=== PATIENT | male | born 2000 | race Caucasian/White ===

== ENCOUNTER 2023-03-23 02:58 | Emergency (ER) | payer OTHER ==
--- NOTE | 2023-03-23 03:25 | ED Physician Documentation ---
PD HPI MALE - Stated complaint Stated Complaint: MALE - History obtained from History obtained from: Patient - History of Present Illness Timing - onset: How many weeks ago (1) Timing - duration: Weeks (1) Timing - details: Abrupt onset, Now resolved, Intermittant Associated symptoms: Hematuria (has noted intermittent pain left flank and left abd over the past week several times, associated with hematuria more often than not but not every void. More so after the times of the pain.), Back pain. No: Dysuria, Urinary frequency, Testiclar pain, Scrotal swelling PD HPI MALE CONTRIB FACTORS: Sexually active. No: Exposed to STD Similar symptoms before: Has not had sx before Recently seen: Not recently seen Review of Systems Constitutional: denies: Fever, Chills Nose: denies: Rhinorrhea / runny nose, Congestion Throat: denies: Sore throat Respiratory: denies: Cough GI: reports: Abdominal Pain : reports: Hematuria. denies: Dysuria, Discharge Skin: denies: Rash, Lesions PD PAST MEDICAL HISTORY - Past Medical History Past Medical History: No - Present Medications Home Medications: Ambulatory Orders Medication Instructions Recorded Confirmed No Known Home Medications 03/23/23 03/23/23 - Allergies Allergies/Adverse Reactions: Allergies Allergy/AdvReac Type Severity Reaction Status Date / Time No Known Drug Allergies Allergy Verified 03/23/23 03:21 PD ED PE NORMAL - Vitals Vital signs reviewed: Yes - General General: Alert and oriented X 3, No acute distress, Well developed/nourished - Cardiac Cardiac: RRR, No murmur - Respiratory Respiratory: No respiratory distress, Clear bilaterally - Abdomen Abdomen: Normal bowel sounds, Soft, Non tender, Non distended - Back Back: No CVA TTP - Derm Derm: Normal color, Warm and dry - Neuro Neuro: Alert and oriented X 3, No motor deficit, Normal speech Results - Vitals Vitals: Oxygen O2 Source Room air - Labs Labs: Laboratory Tests 03/23/23 03:36 Urine Color LT RED Urine Clarity CLEAR Urine pH 6.0 Ur Specific [place] <=1.005 Urine Protein NEGATIVE Urine Glucose (UA) NEGATIVE Urine Ketones NEGATIVE Urine Occult Blood LARGE H Urine Nitrite NEGATIVE Urine Bilirubin NEGATIVE Urine Urobilinogen 0.2 (NORMAL) Ur Leukocyte Esterase NEGATIVE Urine RBC 0-5 Urine WBC 0-3 Ur Squamous Epith Cells RARE Squamous Urine Bacteria None Seen Ur Microscopic Review INDICATED Urine Culture Comments NOT INDICATED - Rads (name of study) KUB CT Relevant Findings:: Prelim report reviewed, EMP independent interpretation of test (3 mm stone at left distal ureter almost to the bladdder, with moderate hydroureter and hydrocalyces. Renal stone incidentally noted on left as well. ) PD Medical Decision Making - ED course Complexity details: reviewed results (KUB CT showing distal ureteral stone with moderate hydroureter. He does not appear in much pain. Has blood in urine without UTI. Did not need parentaeral pain meds. ), considered differential (having pain left abd/flank intermitently, with hematuria. UA does not show signs of infection. Presume ureterolithiasis though tumor mass or such could be as well. No history of stones in the past. Can get imaging to eval. ), d/w patient Departure - Departure Disposition: 01 Home, Self Care Clinical Impression: Hematuria, Ureterolithiasis Condition: Stable Record reviewed to determine appropriate education?: Yes Instructions: ED Stone Renal W Colic Follow-Up: Jose Lyn MD [Provider Admit Priv/Credential] - Comments: Your CT scan is showing some swelling of the left kidney and a backup of fluid caused by partial blockage of the ureter from a 3 mm stone at the end of the ureter almost to the bladder. This would be the cause of the blood in the urine as the stone has rough surface and drags on the ureter as it passes. There is no signs of infection in your urine. At this point the small stone is small enough that it should continue to pass. There is a cuff of muscle at the end of the ureter that keeps urine in the bladder from refluxing. The stone can hang up there for a little bit as it stretches through that area. It can at times cause more significant pain. Stay well-hydrated. Use a combination of ibuprofen or naproxen [id number] anti-inflammatories 2 to 3 tablets 3 times daily with food for the next several days. Add Tylenol 500 to 650 mg 3-4 times daily as well for pain as needed. We sent you home with a few stronger pain pills of hydrocodone to use every 4 hours if needed for worse pain. You can strain your urine and see if you catch the stone. Urinate into a urinal and then for through the strainer. The stone is only 3 mm which should be about 1/8 of an inch in size. Sometimes is not obvious when the stone passes but if you are without any more blood in the urine or pain and it likely had passed into the bladder. From bladder out it is typically painless. If you have persistent symptoms more than the next several days not resolved by 3 to 5 days, you could follow-up with the urologist in [facility] Dr. Lyn. Enclosed is number. The generally would give this a fair amount of time to try to pass on its own without do any before doing any interventions. Call or recheck if you need further pain medication prescriptions beyond what we started you with here. Forms: PCP List Discharge Date/Time: 03/23/23 05:17
[2023-03-23 04:01] LABS: BILIRUBIN,URINE NEGATIVE (NEGATIVE); GLUCOSE, URINE (UA) NEGATIVE (NEGATIVE); KETONES,URINE (UA) NEGATIVE (NEGATIVE); LEUKOCYTE ESTERASE, URINE NEGATIVE (NEGATIVE); NITRITE,URINE NEGATIVE (NEGATIVE); OCCULT BLOOD,URINE LARGE (NEGATIVE); PROTEIN,URINE NEGATIVE (NEGATIVE); UROBILINOGEN,URINE 0.2 (NORMAL) E.U./dL (NORMAL)
[2023-03-23 04:07] LABS: CLARITY,URINE CLEAR (CLEAR)
[2023-03-23 04:10] LABS: BACTERIA,URINE None Seen /HPF (None Seen); RBC,URINE 0-5 /HPF (0-5); SQUAMOUS EPITHELIAL CELL,UR RARE Squamous (<= Few); WBC,URINE 0-3 /HPF (0-3)
[2023-03-23] MEDS: ACETAMINOPHEN 500 MG TABLET PO STA (04:44)
[2023-03-23] MEDS: IBUPROFEN 600 MG TABLET PO STA (04:48)
[2023-03-23] MEDS: HYDROcod/ACET 5/325 Prepack 4 PO STA (05:01)
[2023-03-23 05:23] VITALS: BP 109/68; O2SAT 98
--- NOTE | 2023-03-23 07:43 | CT Report ---
PROCEDURE: Abdomen/Pelvis WO INDICATIONS: left abd pain and hematuria TECHNIQUE: A CT scan of the abdomen and pelvis was performed without the use of intravenous contrast. Images we re recorded and evaluated at appropriate window settings. Reformats: coronal and sagittal. For radiat ion dose reduction, the following was used: automated exposure control, adjustment of mA and/or kV ac cording to patient size. COMPARISON: None. FINDINGS: Image quality: Excellent. Lung bases and heart: Unremarkable. Liver: No contour-deforming mass. Gallbladder and biliary tree: Normal gallbladder. No biliary dilation. Spleen: No splenomegaly. Pancreas: No pancreatic ductal dilation. Adrenals: No adrenal nodule. Kidneys, ureters and the inner bladder: There is a 5 mm stone within the bladder at the left UVJ, marisela suring [address] density. There is a 6 mm stone in the inferior pole of the left ki dney demonstrating CT density 756 Hounsfield units. There is moderate left hydronephrosis. The left k idney is edematous. There is Right kidney is normal without stone or hydronephrosis. renal cystic lesion which requires follow up . No solid mass. Bowel and peritoneum: No bowel distension. No pathologic free fluid. Lymph nodes: No central or retroperitoneal adenopathy. Vessels: No infrarenal aortic aneurysm. PELVIS Reproductive organs: Unremarkable. Bladder: No wall thickness, accounting for underdistention. Pelvic lymph nodes: No pelvic adenopathy by size criteria. Bones: No aggressive osseous abnormality. Mild levoscoliosis. Other: No significant ventral or inguinal hernia. IMPRESSION: 1. There is a 5 mm stone within the bladder at the right UVJ. There is moderate right hydronephrosis. In addition, there is a 6 mm nonobstructive stone within the inferior pole of the right kidney. 2. No left renal calculi or hydronephrosis. Findings are concordant with preliminary interpretation provided by [facility]. Reviewed by: Pam Oh MD on 03/23/2023 7:42 AM PST Approved by: Pam Oh MD on 03/23/2023 7:42 AM PST Station ID: [id number]
== END 2023-03-23 05:17 | disposition home or self-care (01) ==
LOC: ED 02:58
DX: N13.2 Hydronephrosis with renal and ureteral calculous obstruction (principal)
CPT/HCPCS: 74176; 81001; 99283; 99284; A9270; 81003; 87086